=== PATIENT | male | born 1990 | race Caucasian/White ===

== ENCOUNTER 2019-02-19 14:17 | Observation (INO) ==
[2019-02-19 15:13] LABS: BASO# 0.02 X1000 (0.0-0.2); BASO% 0.1 % (0.0-0.8); EOS% 0.7 % (0.0-10.0); HEMATOCRIT 44.2 % (42.0-52.0); IMM GRAN# 0.05 X1000 (0.0-0.04); IMM GRAN% 0.3 % (0.0-0.5); LYMPH% 10.9 % (20.5-51.1); MCHC 33.9 g/dL (33-37); MCV 85.3 FL (81-99); MONO# 0.72 X1000 (0.11-0.59); MONO% 4.9 % (1.7-9.3); MPV 9.9 FL (7.4-10.4); NEUT# 12.25 X1000 (1.4-6.5); NEUT% 83.1 % (42.2-75.2); PLT 290 X1000 (130-400); RBC 5.18 XMIL (4.7-6.1); WBC 14.74 X1000 (4.8-10.8)
[2019-02-19 15:28] LABS: URINE SOURCE CLEAN CATCH
[2019-02-19 15:31] LABS: AGAP 13; ALB/GLOB RATIO 1.2; ALBUMIN 4.1 g/dL (3.5-5.0); ALKALINE PHOSPHATASE 97 U/L (32-122); AMYLASE 34 U/L (20-200); BUN 11 mg/dL (8-22); CALCIUM 9.1 mg/dL (8.8-10.2); CHLORIDE 98 mmol/L (98-107); COSMO 274; CREATININE 0.7 mg/dL (0.7-1.2); ESTIMATED GFR > 60; GLUCOSE 139 mg/dL (70-104); GOT 97 U/L (10-34); GPT 74 U/L (10-44); LIPASE 21 U/L (13-60); POTASSIUM 4.1 mmol/L (3.5-5.1); SODIUM 136 mmol/L (136-145); TCO2 25 mmol/L (25-35); TOTAL PROTEIN 7.6 g/dL (6.3-8.3)
[2019-02-19 15:32] LABS: BILIRUBIN URINE NEGATIVE (NEGATIVE); BLOOD URINE NEGATIVE (NEGATIVE); COLOR YELLOW; GLUCOSE URINE NEGATIVE (NEGATIVE); KETONE URINE NEGATIVE (NEGATIVE); LEUKOCYTES URINE NEGATIVE (NEGATIVE); NITRITE URINE NEGATIVE (NEGATIVE); PH URINE 7.5; PROTEIN URINE TRACE mg/dL (NEGATIVE); SP GRAVITY URINE 1.027; TURBIDITY URINE CLEAR (CLEAR); UR EPITHELIAL CELLS <10 /HPF (<10); URINE BACTERIA NEGATIVE /HPF; URINE RBC <10 /HPF (<10); URINE WBC <10 /HPF (<10); UROBILINOGEN URINE 8 mg/dL (NORMAL)
--- NOTE | 2019-02-19 15:33 | PROVIDER DOCUMENTATION ---
HPI-Abdominal Pain/GI Problem - General Chief Complaint: Abdominal Pain Stated Complaint: RT FLANK PAIN Time Seen by Provider: 02/19/19 15:19 Allergies/Adverse Reactions: Patient Allergies Allergy/AdvReac Type Severity Reaction Status Date / Time No Known Allergies Allergy Verified 02/19/19 15:29 - History of Present Illness-ABD Nature of Presenting Problems: [id number] presents to the ED for c/o RUQ pain that began this morning after eating fried bologna and eggs and radiates to his back and left side. He states that he had 2 episodes of vomiting after the pain hit. He states that a few weeks ago he had a kidney stone and was told by the MD that he had gallstones also. Abdominal Pain Onset Location: reports: RUQ Pain Radiation: reports: flank, back Quality of Pain: reports: stabbing Severity in ED: reports: moderate Onset/Duration: reports: 5 days ago Timing: reports: constant (better now than this morning) Modifying Factors: improves with: lying down (helped alleviate some of the pain) # of Vomiting Episodes: 2 Emesis Description: reports: none Review of Systems - Adult - REVIEW OF SYSTEMS - ADULT Constitutional: reports: see HPI. denies: chills, fever Eyes: reports: no symptoms reported Ears, Nose, Mouth & Throat: reports: no symptoms reported Cardiovascular: reports: no symptoms reported. denies: chest pain, heart murmur, palpitations, syncope Respiratory: reports: no symptoms reported. denies: cough, dyspnea on exertion, wheezing Gastrointestinal: reports: see HPI, abdominal pain (RUQ), nausea, vomiting Genitourinary: reports: no symptoms reported. denies: dysuria, hematuria Musculoskeletal: reports: no symptoms reported Integumentary: reports: no symptoms reported Neurological: reports: no symptoms reported Psychiatric: reports: no symptoms reported Endocrine: reports: no symptoms reported Hematologic/Lymphatic: reports: no symptoms reported Allergic/Immunologic: reports: no symptoms reported All Other Systems: Reviewed and Negative Past History - Adult - PAST MEDICAL HISTORY-ADULT Review of Records: reports: Old Records Reviewed, Nursing Assessment Review, Medications Reviewed, Social history reviewed & non-contributory. Major Childhood Illnesses: reports: denies history Cardiovascular: reports: denies history Respiratory: reports: asthma Gastrointestinal: reports: cholelithiasis Obstetrical/Gynecological: reports: denies history Genitourinary: reports: kidney stones Musculoskeletal: reports: denies history Neurological: reports: denies history Psychiatric: reports: denies history Endocrine/Immune: reports: denies history Other Conditions: reports: denies history - PRIOR SURGERIES/PROCEDURES Surgical/Procedure History: reports: reviewed, not pertinent - IMMUNIZATION STATUS Childhood Immunizations: See Nurse Assessment Flu Vaccine: See Nurse Assessment - FAMILY HISTORY Family History: CAD over 55 yo - SOCIAL HISTORY Smoking: denies Substance Use: denies Living Situation: family Physical Exam-General - PHYSICAL EXAM-ADULT Initial Vital Signs Reviewed: Yes - CONSTITUTIONAL General Appearance: appears well, alert, mild distress - EYES Eyes: PERRL/EOMI, pink conjunctivae - HEAD, EARS, NOSE, MOUTH & THROAT HENMT: normocephalic/atraumatic, moist mucous membranes, normal ENT inspection, TMs normal - NECK Neck: non-tender, full range of motion, supple - RESPIRATORY Respiratory: chest non-tender, lungs clear, normal breath sounds - CARDIOVASCULAR Cardiovascular: normal peripheral pulses, regular rate, rhythm - GASTROINTESTINAL (ABDOMEN) Abdominal Exam: normal bowel sounds, tenderness (RUQ), Anaya's sign - LYMPHATIC Lymphatic: no adenopathy - MUSCULOSKELETAL Back Exam: normal inspection, no CVA tenderness, no vertebral tenderness Extremity: normal range of motion, non-tender, normal gait Peripheral Pulses: radial (R): 2+, radial (L): 2+ - SKIN Integumentary: normal color, normal turgor, warm/dry - NEUROLOGIC Neurologic: healthcare administration internship II-XII nml as tested, grossly normal, no motor/sensory deficits - PSYCHIATRIC Psych/Mental Status: normal mood/affect, oriented x 3 Progress - PLAN OF CARE/RESULTS Progress/Plan/Lab Results: Vital Signs - 8 hr 02/19/19 14:30 Temperature 97.7 F Pulse Rate 81 Respiratory Rate 20 Blood Pressure 132/68 O2 Sat by Pulse Oximetry 99 Laboratory Results - last 24 hr 02/19/19 02/19/19 14:45 14:45 WBC 14.74 H RBC 5.18 Hgb 15.0 Hct 44.2 MCV 85.3 MCH 29.0 MCHC 33.9 RDW Std Deviation 13.0 Plt Count 290 MPV 9.9 Immature Gran % (Auto) 0.3 Neut % (Auto) 83.1 H Lymph % (Auto) 10.9 L Dukes % (Auto) 4.9 Eos % (Auto) 0.7 Baso % (Auto) 0.1 Immature Gran # (Auto) 0.05 H Neut # (Auto) 12.25 H Lymph # (Auto) 1.60 Dukes # (Auto) 0.72 H Eos # (Auto) 0.10 Baso # (Auto) 0.02 Urine Source CLEAN CATCH Orders Category Date Time Status Saline Loc DIRECTED Care 02/19/19 14:58 Active NPO Diet 02/19/19 14:58 Active US GB < RUQ (LIMITED) [US] Stat Exams 02/19/19 15:27 Ordered AMYLASE [CHEM] Stat Lab 02/19/19 14:45 Received CBC WITH ELECTRONIC DIFF [HEME] Stat Lab 02/19/19 14:45 Completed COMPREHENSIVE METABOLIC PANEL [CHEM] Stat Lab 02/19/19 14:45 Received LIPASE [CHEM] Stat Lab 02/19/19 14:45 Received URINALYSIS W/POSS RFLX CULT [URINALYSIS] Stat Lab 02/19/19 14:45 Received patient verbalizes an understanding of POC and agrees with treatment rendered here today. Education provided on Acute Cholecystitis. Result Diagrams: 02/19/19 14:45 02/19/19 14:45 - CT/MRI 1 CT Study: Abdomen, Pelvis Impression: Abnormal ( FINDINGS: There is a nodular density at the left posterior costophrenic angle that has not changed, likely a noncalcified granu maggie. There is moderate diffuse hepatic steatosis. There is evidence of cholelithiasis. There is no pericholecystic inflammatory change. The spleen, pancreas, and adrenal glands are essentially unremarkable. There is a small cyst at the upper pole of the right kidney exhibiting calcification at its periphery. This is also seen on previous studies. The kidneys are essentially unremarkable, otherwise. The urinary bladder is nondistended. The appendix is normal. The remainder of the GI tract is grossly unremarkable. No focal inflammatory changes, free abdominal gas, or free fluid is identified. IMPRESSION: Incidental/nonacute findings detailed above that are essentially stable. No definite acute pathology by CT.), See EMR Report - ULTRASOUND (By Radiology) 1 US Study: Gallbladder Impression: Abnormal, Need Further Study, See EMR Report (The gallbladder is partially obscured. The visualized portion is unremarkable. No gallstones are identified. The common bile duct is obscured. The technologist did report a positive sonographic Anaya sign. Much of the liver is obscured. The visualized portion is unremarkable. The portal vein is obscured. The pancreas is obscured. The aorta and IVC as well as the kidneys are largely obscured. IMPRESSION: 1.Extremely limited study due to body habitus. 2.Limited visualization of the gallbladder shows no discrete abnormality. However, the technologist reported a positive sonographic Anaya sign.) - CONSULTS/PCP/HOSPITALIST Notification #1 *Consult/PCP/Hospitalist*: Dr Sharma Time Discussed: 17:47 Reason/Comments: Acute jocelyne, admit to hospitalist #2 Consult: STEPHANIE Romero Time Discussed: 17:52 Consult Disposition: Admit Departure - Departure Date of Disposition Decision: 02/19/19 Time of Disposition Decision: 17:52 DIAGNOSIS: Acute cholecystitis Disposition: ADMITTED INPATIENT 09 Certified Medical Emergency: Emergent Condition: Critical Additional Freetext Instructions: ED Follow Up Instructions: You have been treated by a care provider in the Emergency Department. These instructions are being provided to you so you can have an understanding of how to care for yourself upon discharge. Upon discharge from the Emergency Department, you are responsible for making arrangements for follow-up care by a physician of your choice. Take all prescribed medications as directed. Return to the Emergency Department immediately for any new or worsening symptoms. You may call the Physician Referral phone number at [phone] to obtain a list of Physicians who are taking new patients. Referrals and Follow-Ups: Deion Orozco [Primary Care Provider] - - Critical Care Note This patient required my direct & personal management of CC.: No Attestation - Physician/ SHIRLEY Attestation Patient care was provided by Advanced Practice Provider:: Yes Advanced Practice Provider:: Elias Redd Advanced Practice Provider documentation review:: The Mid-level provider doc umentation, treatment plan and medical decision making was reviewed by the physician who agrees with all treatment and medical decision making by the [facility]. The physician spent face to face time with patient:: No Advanced Practice Provider documentation review:: Supervising physician onsite and consulted in the evaluation and care of this patient. The physician did not have a face to face encounter with the patient.
[2019-02-19] MEDS ORDERED: ZOSYN 3.375 GM in NS 50 ML IV SCH (15:45)
--- NOTE | 2019-02-19 16:44 | Diag Imaging Result Doc PS360 ---
EXAM: US GB < RUQ (LIMITED) INDICATION: RUQ pain COMPARISON: None. FINDINGS: Note that this study is extremely limited due to body habitus. The gallbladder is partially obscured. The visualized portion is unremarkable. No gallstones are identified. The common bile duct is obscured. The technologist did report a positive sonographic Anaya sign. Much of the liver is obscured. The visualized portion is unremarkable. The portal vein is obscured. The pancreas is obscured. The aorta and IVC as well as the kidneys are largely obscured. IMPRESSION: 1.Extremely limited study due to body habitus. 2.Limited visualization of the gallbladder shows no discrete abnormality. However, the technologist reported a positive sonographic Anaya sign. Electronically signed by Ronald Oviedo 02/19/2019 4:42 PM
--- NOTE | 2019-02-19 17:43 | Diag Imaging Result Doc PS360 ---
EXAM: CT ABD/PELVIS W/IV CONT ONLY INDICATION: abd pain TECHNIQUE: This exam was performed using automated exposure control, adjustment of mA or kV according to patient size, and/or use of iterative reconstruction technique. COMPARISON: 10/26/2017 FINDINGS: There is a nodular density at the left posterior costophrenic angle that has not changed, likely a noncalcified granuloma. There is moderate diffuse hepatic steatosis. There is evidence of cholelithiasis. There is no pericholecystic inflammatory change. The spleen, pancreas, and adrenal glands are essentially unremarkable. There is a small cyst at the upper pole of the right kidney exhibiting calcification at its periphery. This is also seen on previous studies. The kidneys are essentially unremarkable, otherwise. The urinary bladder is nondistended. The appendix is normal. The remainder of the GI tract is grossly unremarkable. No focal inflammatory changes, free abdominal gas, or free fluid is identified. IMPRESSION: Incidental/nonacute findings detailed above that are essentially stable. No definite acute pathology by CT. Electronically signed by Ronald Oviedo 02/19/2019 5:40 PM
[2019-02-19] MEDS ORDERED: NORCO-5 PO ONE (18:19)
--- NOTE | 2019-02-19 19:37 | HISTORY AND PHYSICAL ---
PRIMARY CARE PROVIDER: Deion Orozco MD CHIEF COMPLAINT: Right upper quadrant pain. HISTORY OF PRESENT ILLNESS: Mr. Pérez is a 29-year-old male who carries a past medical history of asthma. He has not had any episodes in years. He has also been told that he has gallstones, but it was nothing acute so they were just going to wait and watch; however, this morning he was eating fried bologna and eggs, and he began to have abdominal pain as well as 2 episodes of vomiting. He came to the ED to be evaluated. He had leukocytosis with a white count of 14. His initial abdominal CT did not show any findings; however, an abdominal ultrasound was positive for Anaya sign. There was limited visualization of the gallbladder that showed no discrete abnormality; however, he does have elevated liver enzymes. ED spoke with Dr. Sharma. We are admitting the patient for cholecystitis. We will continue on IV antibiotics, NPO status and IV fluids, and pain control. PAST MEDICAL HISTORY: Asthma. PAST SURGICAL HISTORY: He has had a hand that was stitched up from a cut. FAMILY HISTORY: Reviewed and noncontributory. SOCIAL HISTORY: He is . He has a 2-year-old daughter. No alcohol, tobacco or illicit drug use. HOME MEDICATIONS: None. ALLERGIES: None. REVIEW OF SYSTEMS: Twelve-point review of systems completed and negative except for those mentioned in HPI. PHYSICAL EXAMINATION: VITAL SIGNS: Temperature is 97.7 degrees, heart rate 81, respirations 20, blood pressure 132/60, O2 is 99% on room air. GENERAL: Mr. Pérez is a pleasant 29-year-old male who is lying in the bed, in no acute distress. HEENT: Atraumatic, normocephalic. PERRL. NECK: Supple. Trachea midline. CARDIOVASCULAR: S1, S2 appreciated. No murmurs, gallops or rubs noted. RESPIRATORY: Lung sounds clear. Nonlabored breathing. GASTROINTESTINAL: Soft. Tender in the right upper quadrant. Positive bowel sounds 4 quadrants. EXTREMITIES: Negative for edema. NEUROLOGIC: No focal deficits noted. He is awake, alert, oriented x4. Follows commands and moves all extremities. DIAGNOSTIC DATA: Abdominal ultrasound: (1) Limited study due to body habitus. (2) Limited visualization of the gallbladder shows no discrete abnormality; however, there was a positive sonographic Anaya sign. Abdomen and pelvis CT showed incidental nonacute findings, essentially stable. No acute pathology. ASSESSMENT AND PLAN: 1. Cholecystitis. We will admit the patient to the surgical floor. Continue his NPO status, antiemetics, pain management, intravenous antibiotics. Await Dr. Lizandro Sharma's assessment and recommendation. 2. Leukocytosis secondary to #1. 3. Asthma. The patient has not had any issues in years. He does not take any medications for this. 4. Morbid obesity. Aware. Further recommendation to follow physician evaluation, laboratory and diagnostic data. Patient seen and examined by me face to face, all the laboratory, vitals signs and images were reviewed, patient presented with abdominal pain, right upper quadrant, with signs of cholecystitis, patient will be placed NPO, he will be hydrated, pain medication, surgery department on board, will have his cholecystectomy done tomorrow, I agree with the rest of the [employer]'s assessment and plan, Quentin Jonas MD Dictated by STEPHANIE Siddiqui for Quentin Quiros MD cc: MD Katarzyna Hutchinson MD Chad McElroy, MD MTDD
[2019-02-19] MEDS ORDERED: ZOFRAN IV PRN (21:07)
[2019-02-19] MEDS ORDERED: TYLENOL PO PRN (21:07)
--- NOTE | 2019-02-19 22:57 | GENERAL SURGERY CONSULTATION ---
DATE: 02/19/2019 HISTORY OF PRESENT ILLNESS: This is a 29-year-old gentleman who has had some episodic abdominal discomfort. More severe attack today, brought him to the ER where CT scan was obtained that showed gallstones. Ultrasound is limited by his obesity. Denies any jaundice, some associated nausea, vomiting, but otherwise in his usual state of health. MEDICAL HISTORY: Asthma and obesity. SURGICAL HISTORY: No abdominal surgery. SOCIAL HISTORY: , 2-year-old daughter. No tobacco, alcohol, drugs. He works driving a concrete truck. FAMILY HISTORY: Reviewed noncontributory. REVIEW OF SYSTEMS: Ten point negative. PHYSICAL EXAMINATION: Vital signs: No fevers. Pulse 72, blood pressure 120/75, oxygen saturation 99%. He is 431 pounds, 6 foot 1. General: He is alert in no acute distress. HEENT: No scleral icterus. No cervical mass. Cardiovascular: Normal rate. Pulmonary: No increased work of breathing. Abdomen: Obese but soft, nontender, nondistended. No peritonitis. Integument: Warm and dry without jaundice. Psychiatric: Appropriate affect. Neurologic: No gross deficits. Lymphatic: No cervical, axillary or inguinal adenopathy. Peripheral vascular: Lower extremity edema noted, but otherwise well perfused. LABS: White count 14, hematocrit 44, platelets 290,000. Creatinine 0.7, bilirubin is 0.90. AST and ALT mildly elevated at 97 and 74. Alkaline phosphatase normal. Amylase and lipase normal. Urinalysis without nitrates or light leukocytes. CT of the abdomen and pelvis shows hepatic steatosis with gallstones. No inflammatory changes. Otherwise unremarkable. The ultrasound is limited. ASSESSMENT/PLAN: A 29-year-old gentleman with apparent symptomatic cholelithiasis. We discussed risks of bleeding, conversion to open, damage to surrounding structures, bile leak, persistent symptoms. He understands and consents to laparoscopic cholecystectomy. We will make him n.p.o. at midnight. He is on Zosyn. We will plan for this tomorrow. cc: Katarzyna Sharma MD
[2019-02-19] MEDS: ZOSYN 3.375 GM in NS 50 ML IV SCH (23:11)
[2019-02-19] MEDS: NS 1,000 ML IV SCH (23:11)
[2019-02-20] MEDS: ZOSYN 3.375 GM in NS 50 ML IV SCH ×3 (03:45→15:58)
[2019-02-20 06:54] LABS: HEMATOCRIT 43.2 % (42.0-52.0); HEMOGLOBIN 14.4 g/dL (14.0-18.0); RBC 5.01 XMIL (4.7-6.1); WBC 5.15 X1000 (4.8-10.8)
[2019-02-20 06:55] LABS: BASO# 0.01 X1000 (0.0-0.2); BASO% 0.2 % (0.0-0.8); EOS# 0.11 X1000 (0.0-0.7); EOS% 2.1 % (0.0-10.0); LYMPH# 1.21 X1000 (1.2-3.4); LYMPH% 23.5 % (20.5-51.1); MCH 28.7 PG (27-31); MCHC 33.3 g/dL (33-37); MCV 86.2 FL (81-99); MONO# 0.47 X1000 (0.11-0.59); MONO% 9.1 % (1.7-9.3); NEUT# 3.35 X1000 (1.4-6.5); NEUT% 65.1 % (42.2-75.2); PLT 255 X1000 (130-400); RDW 13.3 % (11.5-14.5)
[2019-02-20 07:13] LABS: AGAP 12; ALB/GLOB RATIO 1.2; ALBUMIN 3.8 g/dL (3.5-5.0); ALKALINE PHOSPHATASE 110 U/L (32-122); BUN 9 mg/dL (8-22); CALCIUM 9.2 mg/dL (8.8-10.2); CHLORIDE 102 mmol/L (98-107); COSMO 280; CREATININE 0.8 mg/dL (0.7-1.2); ESTIMATED GFR > 60; GLUCOSE 125 mg/dL (70-104); GOT 208 U/L (10-34); GPT 282 U/L (10-44); POTASSIUM 4.3 mmol/L (3.5-5.1); SODIUM 140 mmol/L (136-145); TCO2 26 mmol/L (25-35); TOTAL BILIRUBIN 0.99 mg/dL (0.20-1.00)
[2019-02-20] MEDS: NS 1,000 ML IV SCH ×3 (07:34→19:21)
--- NOTE | 2019-02-20 14:19 | PROGRESS NOTE ---
DATE: 02/20/2019 SUBJECTIVE: This patient is lying comfortably in bed. He is still complaining of right upper quadrant discomfort, but better compared with yesterday. He is scheduled to get a cholecystectomy done today. OBJECTIVE: Vital Signs: Temperature 97.4 degrees, pulse 71, respiratory rate 16, blood pressure 112/51, oxygen saturation 99 on room air. HEENT: Head normocephalic, no trauma. PERRLA. Neck: Supple. No JVD. No masses. Central trachea. Chest: Clear to auscultation. No wheezing. No rales. Abdomen: Soft. Tenderness to palpation at the level of the right upper quadrant. Positive bowel sounds. Extremities: No edema, no clubbing, no cyanosis. Neurological examination: The patient is alert and oriented times x4. No focal deficits. LABORATORY: WBC 5.1, hemoglobin 14.4, hematocrit 43.2, and platelets 255. Sodium 140, potassium 4.3, chloride 102, bicarbonate 26. BUN 9, creatinine 0.8, glucose 125, calcium 9.2. AST 208, ALT 282, alkaline phosphatase 110. ASSESSMENT AND PLAN: 1. Acute cholecystitis. Continue with intravenous fluids. He is scheduled to get a cholecystectomy done today. Continue with pain medication. 2. Leukocytosis, likely secondary to #1, resolved. 3. Elevated liver function tests, secondary to #1. 4. History of asthma, aware. No symptoms or issues in years. 5. Morbid obesity with a body mass index of 56.9. Diet and exercise has been discussed. cc: Quentin Quiros MD
[2019-02-20] MEDS ORDERED: XYLOCAINE-MPF 2% ONE (15:09)
[2019-02-20] MEDS ORDERED: QUELICIN (DOSE) ONE (15:09)
[2019-02-20] MEDS ORDERED: ROBINUL ONE ×2 (15:09→16:54)
[2019-02-20] MEDS ORDERED: DIPRIVAN 1% ONE (15:11)
[2019-02-20] MEDS ORDERED: SENSORCAINE-MPF 0.5%/EPI 1:200,000 ONE (15:38)
[2019-02-20] MEDS ORDERED: SODIUM CHLORIDE 0.9% ONE (15:38)
[2019-02-20] MEDS ORDERED: LR 1,000 ML ONE (15:38)
[2019-02-20] MEDS ORDERED: LOVENOX SUBQ ONE (16:15)
[2019-02-20] MEDS ORDERED: ZOFRAN ONE (16:54)
[2019-02-20] MEDS ORDERED: DECADRON ONE (16:54)
[2019-02-20] MEDS ORDERED: NEOSTIGMINE ONE (16:55)
[2019-02-20] MEDS: DEMEROL IV PRN (20:17)
[2019-02-20] MEDS: PERIDEX MT SCH (20:17)
--- NOTE | 2019-02-20 20:25 | OPERATIVE NOTE ---
PROCEDURE DATE: 02/20/2019 PREOPERATIVE DIAGNOSES: 1. Symptomatic cholelithiasis. 2. Morbid obesity. Body mass index 56.9. POSTOPERATIVE DIAGNOSES: 1. Symptomatic cholelithiasis. 2. Morbid obesity. Body mass index 56.9. PROCEDURE PERFORMED: Laparoscopic cholecystectomy. FOOD AND BEVERAGE COORDINATOR: Shawn Castillo MD. Dr. Castillo was present and facilitated exposure and retraction in this morbidly obese gentleman. SPECIMEN: Gallbladder. ANESTHESIA: General. INDICATION: A 29-year-old gentleman who has had episodic abdominal discomfort, landing him in the ER, and CT scan showed gallstones. OPERATIVE FINDINGS: There was a chronically inflamed gallbladder with several stones within the lumen. He is very obese, with very large abdominal wall and large amount of perivisceral and omental adipose tissue. OPERATIVE NOTE: Risks, benefits and alternatives were discussed with the patient. He consented to the procedure. He was seen preoperatively, surgical site was confirmed. He was taken to the operating room and placed in supine position. General anesthesia was induced without complication. All bony prominences were padded. He was secured to the bed. Hair was removed with clippers and his abdomen was prepped with chlorhexidine solution, draped in the usual fashion. After a time-out, I made a supraumbilical midline incision. I carried this down through the subcutaneous adipose tissue, identifying the anterior fascia and incised this, incising the peritoneum sharply and elevating with a hemostat clamp. We entered the abdomen in an open controlled fashion. A 12 mm Evangelina trocar was placed. He was then placed in reverse Trendelenburg, left side down. We placed three 5 mm trocars in the epigastrium, one in the midclavicular line off the costal margin and one more laterally. These just did reach to the abdominal wall. We retracted the gallbladder cephalad. He had a very large fatty liver, and we had to place a fan retractor through a 10 mm trocar in the right lower abdomen to gain exposure. We stripped down the peritoneum. There was a cystic artery branch that we encircled and confirmed our anatomy, clipped and divided. This facilitated our exposure of the infundibulum and the cystic duct. We dissected this out widely, establishing our critical view. There was a stone within the cystic duct that we milked in a retrograde fashion. We placed a clip on the gallbladder side. We opened the cystic duct to ensure there was no more debris. We elected not to perform cholangiogram, as exposure was very difficult, but we were able to gain adequate identification of the anatomy. We triply clipped the cystic duct and divided it, and removed the gallbladder from the gallbladder fossa with care not to rupture it, obtaining hemostasis as we went. It was placed in an EndoCatch bag. It was very tensely distended. We irrigated the abdomen copiously, noting hemostasis and that no bile was leaking. At this point his fan retractor was removed, and this port was closed with 0 Vicryl on a Francis-Gregg device. The remaining trocars were removed. We closed the fascia at the midline with interrupted 0 Vicryl sutures. The skin was closed with surgical clips and a gauze dressing was applied. He tolerated it well. He was awoken and transferred to recovery. We will observe him overnight. cc: Katarzyna Sharma MD
[2019-02-20] MEDS ORDERED: PERIDEX MT SCH (21:00)
[2019-02-21] MEDS: DEMEROL IV PRN ×4 (00:05→16:21)
[2019-02-21 07:26] LABS: BASO# 0.01 X1000 (0.0-0.2); BASO% 0.1 % (0.0-0.8); HEMOGLOBIN 14.1 g/dL (14.0-18.0); IMM GRAN# 0.03 X1000 (0.0-0.04); IMM GRAN% 0.3 % (0.0-0.5); LYMPH% 11.2 % (20.5-51.1); MCH 28.4 PG (27-31); MCHC 32.8 g/dL (33-37); MCV 86.5 FL (81-99); MONO# 0.55 X1000 (0.11-0.59); MONO% 5.1 % (1.7-9.3); MPV 10.2 FL (7.4-10.4); NEUT# 8.89 X1000 (1.4-6.5); NEUT% 83.3 % (42.2-75.2); PLT 316 X1000 (130-400); RBC 4.97 XMIL (4.7-6.1); RDW 13.3 % (11.5-14.5); WBC 10.68 X1000 (4.8-10.8)
[2019-02-21 07:50] LABS: AGAP 12; ALB/GLOB RATIO 1.2; ALKALINE PHOSPHATASE 105 U/L (32-122); BUN 8 mg/dL (8-22); CALCIUM 9.6 mg/dL (8.8-10.2); CHLORIDE 103 mmol/L (98-107); COSMO 279; CREATININE 0.7 mg/dL (0.7-1.2); ESTIMATED GFR > 60; GLUCOSE 154 mg/dL (70-104); GOT 80 U/L (10-34); GPT 226 U/L (10-44); SODIUM 139 mmol/L (136-145); TCO2 24 mmol/L (25-35); TOTAL BILIRUBIN 0.46 mg/dL (0.20-1.00); TOTAL PROTEIN 7.4 g/dL (6.3-8.3)
[2019-02-21] MEDS: NS 1,000 ML IV SCH (10:28)
[2019-02-21] MEDS: PERIDEX MT SCH (10:28)
[2019-02-21 12:06] VITALS: BP 112/58
--- NOTE | 2019-02-21 20:32 | GENERAL SURGERY PROGRESS NOTE ---
DATE: 02/21/2019 SUBJECTIVE: Doing well. Pain is improved. He is tolerating a diet, voiding. No nausea, no fevers, no tachycardia overnight. OBJECTIVE: Exam: Abdomen is soft. Incisions are all clean. The dressings are removed. A sitting side chair is ambulated. LABORATORY: White count is normal at 10, hematocrit is 43. Creatinine 0.7, bilirubin is normal, AST and ALT are down trending. ASSESSMENT AND PLAN: A 29-year-old gentleman status post laparoscopic cholecystectomy. He is doing well. He can see me back in the next one to two weeks for staple removal. I have given him verbal instructions. Otherwise, I think from a surgical standpoint he is okay to go home. I have given him prescriptions for Harrison and Zofran. Appreciate the hospitalist's help. cc: Katarzyna Sharma MD
--- NOTE | 2019-02-22 14:41 | DISCHARGE SUMMARY ---
ADMISSION DATE: 02/19/2019 DISCHARGE DATE: 02/21/2019 DISCHARGE DIAGNOSES: 1. Acute cholecystitis status post laparoscopic cholecystectomy. 2. Leukocytosis resolved, likely secondary to acute cholecystitis. 3. Elevated liver function tests secondary to #1. 4. History of asthma, aware. 5. Morbid obesity with a body mass index of 56.9. 6. Sleep apnea. PROCEDURES PERFORMED: 1. Abdominal ultrasound dated 02/19/2019 impression, extremely limited study due to body habitus. 2. Limited visualization of the gallbladder shows no discrete abnormality. However the technologist reported a positive sonographic Anaya sign. Abdomen and pelvis CT scan dated 02/19/2019 impression, incidental nonacute finding detail as above, nodular density at the left posterior costophrenic angle that has not changed likely a noncalcified granuloma, moderate diffuse hepatic steatosis, evidence of cholelithiasis. There is no pericholecystic inflammatory change. There is a small cyst at the upper pole of the right kidney exhibiting calcification at its periphery. The urinary bladder is nondistended. Normal appendix. 3. Laparoscopic cholecystectomy dated 02/20/2019 by Surgery Department. CONSULTS: Lizandro Parks, Surgery Department. HOSPITAL COURSE: A 29-year-old male with a past medical history of asthma, sleep apnea, morbid obesity presented to emergency department complaining of abdominal pain, nausea and vomiting x2, apparently the episode of abdominal pain started after eating, in emergency department he was evaluated and he was found to have a leukocyte count elevated with a positive abdominal ultrasound for Anaya sign. There was a limited visualization of the gallbladder that showed no discrete abnormality however he does have elevated liver enzymes. Surgery Department evaluated this patient. He was placed n.p.o. We put him on pain medication and the following day he had a cholecystectomy done laparoscopically, he tolerated well the procedure. Today he was started on a diet and also he tolerated that. After reevaluation by Surgery Department we have decided to send this patient home and follow up with Dr. Sharma next week, he will be discharged with pain medication and nausea/vomiting medication as well, at the moment of discharge this patient was on a stable medical condition. PHYSICAL EXAM: Vital signs: Temperature 97.9 degrees, pulse 77, respiratory rate 20, blood pressure 112/58, oxygen saturation 98 on room air. HEENT: Head normocephalic. No trauma. PERRLA. Neck: Is supple. No JVD, no masses. Central trachea. Chest: Decreased breath sounds globally but clear to auscultation. No wheezing, no rales. Abdomen: Soft, protuberant. He has some small dressing from the recent surgery with no sign of bleeding or infection. Extremities: No edema, no clubbing, no cyanosis. Neurological: The patient is alert and oriented x3. No focal deficits. LABORATORY: WBC 10.6, hemoglobin 14.1, hematocrit 43, platelets 316,000. Sodium 139, potassium 4, chloride 103, bicarbonate 24, BUN 8, creatinine 0.7, glucose 154, calcium 9.6, AST 80, ALT 226, alkaline phosphatase 105. DISCHARGE MEDICATIONS: [place] 7.5 one tablet p.o. q.6 hours as needed and Zofran 4 mg p.o. q.4 hours as needed for nausea and vomiting as well. TIME SPENT: 35 minutes. cc: Quentin Quiros MD
== END 2019-02-21 16:44 | disposition home or self-care (01) | DRG 418 ==
LOC: ED 14:17 → INTOOBSV 14:18 → 4N 14:18
PROVIDERS: ATTEND Internal Medicine